=== PATIENT | female | born 1960 | race Caucasian/White ===

== ENCOUNTER 2017-11-11 07:59 | Emergency (ER) | payer OTHER ==
[2017-11-11 08:25] VITALS: BP 140/73
[2017-11-11] MEDS ORDERED: Fluorescein Sod TOPICAL 0.6* 0.6 MG TEST OPHTHALMIC ONE (08:40)
--- NOTE | 2017-11-11 08:50 | UC ---
Eye Complaint HPI - HPI Summary HPI Summary: Patient is a 57 y/o female who presents to the ED c/o eye pain. 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 Patient immediately flushed her eye out with water and her eye felt better. Over the past few days her eye has been worsening, and she c/o eye pain, eyelid redness, eye watering, and mild difficulty with left eye vision. Her top eyelid is the most painful. No fever, no chills. No ear pain or sinus pain. Patient denies any itching, ear pain, or sinus pressure. She denies any prior eye surgeries. She also notes she is coming down with a cold. No corrective lenses Patients medication reviewed this visit. - History of Current Complaint Chief Complaint: UCEye Stated Complaint: EYE ISSUE Time Seen by Provider: 11/11/17 08:38 Hx Obtained From: Patient Onset/Duration: Gradual Onset, Lasting Days - 3, Worse Since Timing: Constant Severity Currently: Mild Pain Intensity: 2 Pain Scale Used: 0-10 Numeric Location of Injury: Eye Lid (upper) Character: Dull Aggravating Factor(s): Light, Other - Touch Alleviating Factor(s): Nothing Associated Signs And Symptoms: Positive: Photophobia, Drainage (Clear), Vision Impairment Left, Swelling Related History: Foreign Body - Possible dust in left eye - Allergies/Home Medications Allergies/Adverse Reactions: Allergies Allergy/AdvReac Type Severity Reaction Status Date / Time morphine Allergy Hallucinati Verified 11/11/17 08:25 ons PMH/Surg Hx/FS Hx/Imm Hx Previously Healthy: Yes Endocrine History: Other Other Endocrine History: NEGATIVE: DM Cardiovascular History: Other Other Cardiovascular History: NEGATIVE: HTN Cancer History: Colorectal Cancer - Surgical History Surgical History: Yes Surgery Procedure, Year, and Place: colon, tonsillectomy - Family History Known Family History: Positive: Other Family History: NEGATIVE: eye problems - Social History Occupation: Employed Full-time Lives: With Family Alcohol Use: Rare Substance Use Type: None Smoking Status (MU): Former Smoker When Did the Patient Quit Smoking/Using Tobacco: few years Review of Systems Eyes: Blurred Vision, Drainage - Clear, Eye Redness, Photophobia, Other - Eye pain - upper lid ENT: Negative - ear pain, sinus pressure All Other Systems Reviewed And Are Negative: Yes Physical Exam - Summary Physical Exam Summary: Vital Signs Reviewed: Yes A+Ox3, mild discomfort Eye: MELIZA. EOM intact and full, pt with erythema, focal edema c/w stye middle left upper lid. + erythema periorbital. No crepitus. no warmth eye injected upper lid with sligh lag related to edema. No drainage noted. no edema nasal bridge. no uptake with fluorescene ENT: Hearing grossly normal TM x 2 clear, mmoist, uvula midline, no exudate, no erythema Neck: Positive: Supple Respiratory: Positive: No respiratory distress, No accessory muscle use + CTA throughout no w/r Cardiovascular: RRR nl s1, s2 no m/r CBT <2 sec abd soft + BS nt/nd no guarding, no distension Musculoskeletal Exam: MCBRIDE x 4 without difficulty Strength Intact, ROM Intact Neurological: Positive: Alert, + sensation throughout Psychological: Positive: Normal Response To Family Skin: Positive: no rash, no ecchymosis Triage Information Reviewed: Yes Vital Signs: Initial Vital Signs Temp 98.4 F 11/11/17 08:20 Pulse 80 11/11/17 08:20 Resp 16 11/11/17 08:20 BP 140/73 11/11/17 08:20 Pulse Ox 99 11/11/17 08:20 Eye Complaint Course/Dx - Course Course Of Treatment: Pt with progressive left upper lid swelling and discomfort. Pt with periorbital erythema and edema - c/w style and preseptal cellulitis. no fb noted. reviewed visual acuity. recommend pt f/u with ophtho -called Dr. Resendez and made appt for today at 1:30pm Rx erythromycin, bactrim. pt comfortable and in agreement with plan. Pt with elevated BP -r ecommend PCP f/u - Differential Dx/Diagnosis Provider Diagnoses: stye. periorbital cellulitis Discharge - Sign-Out/Discharge Documenting (check all that apply): Patient Departure - Discharge All imaging exams completed and their final reports reviewed: No Studies - Discharge Plan Condition: Stable Disposition: HOME Prescriptions: Erythromycin OPTH OINT* [Erythromycin 0.5% OPTH OINT*] 1 applic LEFT EYE Q8HR # 1 ophth.oint Sulfamethox/Trimethoprim DS* [Bactrim DS 800/160 TAB*] 1 tab PO BID #14 tab Patient Education Materials: Stye (ED), Periorbital Cellulitis in Adults (ED) Forms: *Work Release Referrals: [facility] [place] [facility] [Outside] Edi Tenorio MD [Medical Doctor] - (1:45pm today, 11/11/2017) Additional Instructions: - You have a an appointment with Dr. Tenorio - 1:45pm today - - Use eye drops and take oral antibiotics as prescribed - apply a warm, wet washcloth to your eye 3-4 times a day - wear sunglasses if you have light sensitivity - keep your appointment as scheduled today - Billing Disposition and Condition Condition: STABLE Disposition: Home - Attestation Statements Document Initiated by Scribe: Yes Documenting Scribe: Em Frances Provider For Whom Anabel is Documenting (Include Credential): Omaira Macias MD Scribe Attestation: Em Kyle, scribed for Omaira Macias MD on 11/15/17 at 1544. Scribe Documentation Reviewed: Yes Provider Attestation: The documentation as recorded by the Em ansari accurately reflects the service I personally performed and the decisions made by me, Omaira Macias MD
== END 2017-11-11 09:08 | disposition home or self-care (01) ==
LOC: UCEAST 07:59
DX: H00.014 Hordeolum externum left upper eyelid (principal); L03.213 Periorbital cellulitis; Z88.5 Allergy status to narcotic agent; Z87.891 Personal history of nicotine dependence
CPT/HCPCS: 99212; G0463

== ENCOUNTER 2022-07-31 13:07 | Observation (INO) ==
[~2022-07-31 13:07] MED LIST: Piperacillin/Tazobac ADVAN 3.375 GM in NS 0.9% 100 ml BAG 100 ML IV SCH
[2022-07-31] MEDS ORDERED: Ondansetron 4 mg VIAL 2 MG/ML 2 ml VIAL ONE (13:31)
[2022-07-31] MEDS ORDERED: Famotidine IV 10 MG/ML 2 ml VIAL (20 mg) ONE (13:31)
[2022-07-31 13:37] LABS: Hematocrit 31.7 % (35-45); Hemoglobin 10.3 g/dL (11.5-14.3); Mean Corpuscular Hemoglobin 26.4 pg (27-33); Mean Corpuscular Hgb Conc 32.5 g/dL (31-36); Mean Corpuscular Volume 81.2 fL (80-97); Mean Platelet Volume 6.5 fL (7.5-11.2); Platelet Count 543 10^3/uL (150-450); Red Blood Count 3.91 10^6/uL (3.63-4.92); Red Cell Distribution Width 18.7 % (12-17); White Blood Count 24.5 10^3/uL (3.8-11.8)
[2022-07-31 13:48] LABS: ABS Neutrophils 22.8 10^3/uL (1.5-7.6)
[2022-07-31 13:52] LABS: Albumin 3.4 g/dL (3.2-5.2); Calcium 9.8 mg/dL (8.6-10.3); Magnesium 1.9 mg/dL (1.9-2.7); Potassium 3.9 mmol/L (3.5-5.0); Total Bilirubin 0.4 mg/dL (0.2-1.0)
[2022-07-31] MEDS ORDERED: Morphine 2 MG/ML SYRINGE ONE (13:55)
[2022-07-31 13:57] LABS: Albumin/Globulin Ratio 0.8 (1-3); Creatinine, Serum 0.4 mg/dL (0.51-0.95); Globulin 4.5 g/dL (2-4); Total Protein 7.9 g/dL (6.4-8.9); eGFR CKD-EPI 111.8 (>60)
[2022-07-31 14:40] LABS: ABS Basophils 0.1 10^3/uL (0.0-0.1); ABS Lymphocytes 0.4 10^3/uL (1.0-4.8); ABS Monocytes 1.1 10^3/uL (0.0-0.9); Eosinophil % 0.1 %; Lymphocyte % 1.8 %
[2022-07-31] MEDS ORDERED: Polyethylene Glycol 3350 17 GM PACKET PO PRN (15:57)
[2022-07-31] MEDS ORDERED: Ondansetron 4 mg VIAL 2 MG/ML 2 ml VIAL IV PRN (15:57)
[2022-07-31] MEDS ORDERED: Piperacillin/Tazobac ADVAN 3.375 GM in NS 0.9% 100 ml BAG 100 ML IV ONE (16:00)
[2022-07-31] MEDS ORDERED: Zosyn per Pharmacy NOTE FOLLOW UP SCH (16:00)
[2022-07-31] MEDS ORDERED: Prochlorperazine 5 mg/ml 2 ml VIAL (10 mg) IV PRN (16:26)
[2022-07-31] MEDS ORDERED: fentaNYL PATCH 12 MCG/HR 1 PATCH TRANSDERM SCH (17:00)
[2022-07-31] MEDS ORDERED: Iohexol 350 (CONTRAST) 500 ML MDV IV ONE (17:41)
[2022-07-31] MEDS: oxyCODONE 5 mg/5 ml ORAL.SOLN UDC PO PRN (18:04)
[2022-07-31] MEDS: Enoxaparin 40 MG/0.4 ML SYR SUBCUT SCH (18:05)
[2022-07-31] MEDS: NS 0.9% 1000 ml BAG 1,000 ML IV SCH (19:23)
[2022-07-31] MEDS: fentaNYL Patch Check Q Shift NOTE FOLLOW UP SCH (19:23)
[2022-07-31] MEDS: ZOSYN 3.375 GM Q8H per EXTENDED INFUSION IV SCH (22:04)
[2022-08-01] MEDS: ZOSYN 3.375 GM Q8H per EXTENDED INFUSION IV SCH ×2 (05:54→13:01)
[2022-08-01] MEDS: NS 0.9% 1000 ml BAG 1,000 ML IV SCH ×2 (05:54→15:40)
[2022-08-01 06:16] LABS: ABS Basophils 0.1 10^3/uL (0.0-0.1); ABS Eosinophils 0.1 10^3/uL (0.0-0.5); ABS Lymphocytes 0.4 10^3/uL (1.0-4.8); ABS Neutrophils 14.6 10^3/uL (1.5-7.6); ABS Nucleated RBC 0.01 10^3/ul; Eosinophil % 0.3 %; Hematocrit 25.7 % (35-45); Hemoglobin 8.6 g/dL (11.5-14.3); Lymphocyte % 2.6 %; Mean Corpuscular Hemoglobin 27.2 pg (27-33); Mean Corpuscular Hgb Conc 33.6 g/dL (31-36); Mean Corpuscular Volume 80.9 fL (80-97); Mean Platelet Volume 6.6 fL (7.5-11.2); Platelet Count 404 10^3/uL (150-450); Red Blood Count 3.17 10^6/uL (3.63-4.92); Red Cell Distribution Width 18.1 % (12-17); White Blood Count 16.2 10^3/uL (3.8-11.8)
[2022-08-01 06:34] LABS: Albumin 2.7 g/dL (3.2-5.2); Albumin/Globulin Ratio 0.8 (1-3); Calcium 8.5 mg/dL (8.6-10.3); Creatinine, Serum 0.4 mg/dL (0.51-0.95); Globulin 3.3 g/dL (2-4); Potassium 3.7 mmol/L (3.5-5.0); Total Bilirubin 0.4 mg/dL (0.2-1.0); eGFR CKD-EPI 111.8 (>60)
[2022-08-01] MEDS: fentaNYL Patch Check Q Shift NOTE FOLLOW UP SCH (07:09)
[2022-08-01] MEDS: oxyCODONE 5 mg/5 ml ORAL.SOLN UDC PO PRN (07:30)
[2022-08-01] MEDS ORDERED: Omeprazole 20 mg CAP (NF) PO SCH (09:00)
[2022-08-01] MEDS ORDERED: Pantoprazole VIAL 40 MG VIAL IV SCH (09:00)
[2022-08-01 17:16] VITALS: BP 145/64
[2022-08-01] MEDS ORDERED: Ondansetron ODT 4 mg TAB 4 MG TAB PO PRN (17:54)
[2022-08-01] MEDS ORDERED: FENTANYL 12 MCG/HR TRANSDERM SCH (18:00)
[2022-08-01] MEDS: Enoxaparin 40 MG/0.4 ML SYR SUBCUT SCH (18:12)
== END 2022-08-01 18:15 | disposition home or self-care (01) ==
LOC: MED 13:07 → CHOA 13:07
PROVIDERS: ADMIT Internal Medicine Medical Oncology; ATTEND Internal Medicine Hematology & Oncology